=== PATIENT | male | born 1980 | race American Indian/Alaskan Native ===

== ENCOUNTER 2020-06-23 16:03 | Emergency (ER) | payer OTHER ==
[2020-06-23 16:15] VITALS: BP 144/85
[2020-06-23] MEDS ORDERED: IBUPROFEN 800 MG TAB PO ONE (16:56)
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
== END 2020-06-23 19:01 | disposition home or self-care (01) ==
LOC: ED 16:03
DX: S90.01XA Contusion of right ankle, initial encounter (principal); S90.31XA Contusion of right foot, initial encounter; J45.909 Unspecified asthma, uncomplicated; Z79.899 Other long term (current) drug therapy; Z88.0 Allergy status to penicillin; Z88.8 Allergy status to other drugs, medicaments and biological substances; X58.XXXA Exposure to other specified factors, initial encounter; Y93.89 Activity, other specified; Y92.89 Other specified places as the place of occurrence of the external cause; Y99.8 Other external cause status